=== PATIENT | male | born 1970 | race Caucasian/White ===

== ENCOUNTER 2016-07-03 17:06 | Inpatient (IN) | payer SELFPAY ==
--- NOTE | ~2016-07-03 | DS ---
Discharge Summary [facility] [address] [place]. [address] NAME: ADOLFO SHIPMAN : 72 STATUS : DIS IN PAT#: [id number] AGE: 46 ADM/REG DATE : 07/03/16 MR#: [id number] REPORT SERV DATE: 07/17/16 DICTATED BY: JESSICA WINCHESTER DATE: 07/16/16 REPORT STATUS : Draft TRANSCRIBED BY: ELIZABETH DATE: 07/16/16 Data Collection from hospitalization DISCHARGE DIAGNOSES: 1. Anterior ST-elevation myocardial infarction - acute. 2. Coronary artery disease, status post percutaneous transluminal coronary angioplasty/percutaneous coronary intervention/left anterior descending for in-stent restenosis. 3. Ischemic cardiomyopathy. 4. Ventricular fibrillation. 5. Hyperlipidemia. 6. Tobacco use. 7. History of previous myocardial infarction. CONSULTATIONS: None. PROCEDURES PERFORMED: Cardiac catheterization and percutaneous coronary intervention on 07/03/2016. DISCHARGE MEDICATIONS: Aspirin 81 mg daily, Lipitor 40 mg at bedtime, Coreg 25 mg twice a day, Prinivil 5 mg daily, Nitrostat 0.4 mg sublingually as needed, Aldactone 25 mg daily, Brilinta 90 mg twice a day, Coumadin 5 mg every evening, potassium 20 mEq if taking Lasix 20 mg for swelling and/or dyspnea. CONDITION AT DISCHARGE: Stable. DISPOSITION: The patient was discharged home on a low-sodium, low-cholesterol diet with activities as instructed. He will follow up with . He would have an INR level checked at the [facility] on 07/09/2016. HOSPITAL COURSE: This is a 46-year-old man who has coronary artery disease with previous inferior wall myocardial infarction in 2013. At that time, he was stented with a drug- eluting stent to the right coronary artery. Stage intervention during that hospitalization of the LAD was performed due to critical disease. The patient had not been followed up in Cardiology since 2013 after discharge. On the day of this admission, he developed an acute onset of chest discomfort while working in the yard. He reported an 11/10 intensity of chest pain. EMS was contacted. On arrival, electrocardiogram demonstrated marked ST- segment elevation in leads V2 through V5. Code STEMI protocol was activated. The patient was transferred emergently to [facility]. With direct admission, it was felt that he would need to undergo emergent cardiac catheterization. The patient developed ventricular fibrillation with defibrillation x2 with successful conversion to a sinus rhythm. He was admitted to the hospital at this time for further evaluation and treatment. 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 He tolerated this well, and there were no complications. The following day, he had no further chest pain. His lungs were clear. He was in a normal sinus rhythm. Echocardiogram was performed. On 07/05/2016, his nausea had decreased. He had some mild chest wall pain. He was in a sinus rhythm. His nausea and vomiting resolved. He has had a Discharge Summary [address] [address] NAME: ADOLFO SHIPMAN : 72 STATUS : DIS IN PAT#: [id number] AGE: 46 ADM/REG DATE : 07/03/16 MR#: [id number] REPORT SERV DATE: 07/17/16 DICTATED BY: JESSICA WINCHESTER DATE: 07/16/16 REPORT STATUS : Draft TRANSCRIBED BY: ELIZABETH DATE: 07/16/16 nose bleed which also resolved. He had an occasional cough. Coumadin had been started. Discharge planning was performed. He said he was feeling well. There was no hematoma or bruit at the cath site. On 07/07/2016, he had a Life Vest placed. He has no chest pain overnight. He had no edema. Additional congestive heart failure education was provided. Discharge instructions were given. Due to his improved and stable condition, he was discharged home with the above-stated instructions. Information collected by: Janell Groves I submit the above information as my discharge summary. TG/ELIZABETH Lennie Winchester M.D. / [id number] CC: Haile Brock MD
--- NOTE | ~2016-07-03 | HP ---
History And Physical [facility] [address] [place]. [address] NAME: ADOLFO SHIPMAN : 72 STATUS : ADM IN [facility]#: [id number] AGE: 46 ADM/REG DATE : 07/03/16 MR#: [id number] REPORT SERV DATE: 07/04/16 DICTATED BY: JESSICA WINCHESTER DATE: 07/03/16 REPORT STATUS : Draft TRANSCRIBED BY: MODJose Miguel DATE: 07/03/16 DATE OF ADMISSION: 07/03/2016 CHIEF COMPLAINT: Chest pain. HISTORY OF PRESENT ILLNESS: A 46-year-old male with known coronary artery disease with previous inferior wall myocardial infarction in 2013. At that time stented with a drug- eluting stent to the right coronary artery. Staged intervention during that hospitalization of the LAD due to critical disease. The patient has not been followed up in Cardiology since 2013 after discharge. Today, the patient developed an acute onset of chest discomfort while working in the yard. He reported "11/10" intensity chest pain. Emergency Medical Services were contacted. On arrival, electrocardiogram was performed, which demonstrated marked ST-segment elevation in leads V2 through V5. The code STEMI protocol was activated, and the patient was transferred emergently to [facility] in [place], [place] with direct admission to the cardiac catheterization laboratory. EN route, the patient developed ventricular fibrillation with defibrillation x2 with successful conversion to sinus rhythm. On arrival in the catheterization laboratory, the patient continued to complain of 10/10 intensity chest discomfort. He was markedly diaphoretic. He denies any recent chest pain before onset earlier today. PAST MEDICAL HISTORY: 1. Coronary artery disease with previous drug-eluting stents to the LAD and right coronary arteries in 2013. 2. Old inferior wall myocardial infarction in 2013. 3. Hyperlipidemia. 4. Tobacco abuse. SOCIAL HISTORY: Current smoker. Approximately one to two packs per day. A lifelong smoker. Denies illicit drug use. FAMILY HISTORY: Not obtainable. REVIEW OF SYSTEMS: Negative for all organ systems except per the history of present illness. ALLERGIES: NO KNOWN DRUG ALLERGIES. PHYSICAL EXAMINATION: VITALS: BP 138/72. PULSE 104 and regular. Respirations 20 and mildly labored. Saturating 100% on 2 L nasal cannula. Markedly diaphoretic. GENERAL: A middle-aged male in severe distress secondary to severe chest pain. HEENT: Normal. NECK: Supple, no JVD or bruit, normal carotid upstroke bilaterally, no thyromegaly. LUNGS: Clear to auscultation and percussion. No wheezes, rales or rhonchi. No use of accessory muscles. CARDIOLOGY: Regular rhythm, normal S1, S2, no thrill, no murmur, rubs or gallops, normal History And Physical [address] [address] NAME: ADOLFO SHIPMAN : 72 STATUS : ADM IN PAT#: [id number] AGE: 46 ADM/REG DATE : 07/03/16 MR#: [id number] REPORT SERV DATE: 07/04/16 DICTATED BY: JESSICA WINCHESTER DATE: 07/03/16 REPORT STATUS : Draft TRANSCRIBED BY: ELIZABETH DATE: 07/03/16 PMI. ABDOMEN: Bowel sounds positive, soft, nontender, and nondistended. No masses or aortic bruits. No hepatosplenomegaly or hepatojugular reflux. EXTREMITIES: No edema. Normal pulses. No clubbing or cyanosis. SKIN: Warm and dry, no significant rash. NEUROLOGIC: Alert and oriented x 3. Appropriate mood. IMAGING: EKG: Sinus rhythm with marked ST-segment elevation in leads V2 through V5. LABORATORIES: Not performed at the time of arrival in the catheterization laboratory. IMPRESSION: Acute anterior wall ST-segment elevation myocardial infarction. The patient received emergently cardiac catheterization laboratory for angiography and intervention as indicated. Emergent consent was assumed. In summary, the patient was found to have an occluded proximal LAD. He underwent balloon angioplasty with development of ventricular fibrillation for which he was defibrillated twice. Subsequent stenting of the proximal LAD lesion with a bare metal stent. Patent stent to mid LAD. Patent stent to mid RCA. Severe flow limiting disease in the proximal to midportion of the right coronary artery preceding the stent. Due to instability of the patient during catheterization, we did not proceed to intervention of the right coronary artery. Consider staged intervention at a later date. FERDINAND/ELIZABETH Lennie Winchester M.D. / [id number] CC: Haile Brock MD
[~2016-07-03 17:06] MED LIST: *DENIES; ASAB PO; COREG6 PO; NITROQUICK0.4 MG SL; PLAVIX PO; PRIN5 PO; WELLSR150 PO; ZOCOR40 PO
[2016-07-03 17:44] LABS: HEMOGLOBIN 15.1 g/dL (13.6-17.8); MEAN CORPUS HGB CONC 34.3 g/dL (32.0-36.0); MEAN CORPUSCULAR HEMOGLOB 30.8 pg (26.0-34.0); MEAN CORPUSCULAR VOLUME 89.6 fL (80-100); MEAN PLATELET VOLUME 10.8 fL (9.2-13.0); RBC DISTRIBUTION WIDTH 13.6 % (12.0-16.0); RED CELL COUNT 4.91 10/6/uL (4.7-6.1); WHITE BLOOD CELLS 17.8 10/3/uL (4.5-10.5)
[2016-07-03 17:45] LABS: MANUAL DIFF YES %; PLATELET COUNT 309 10/3/uL (150-400)
[2016-07-03 17:52] LABS: INTERNATIONAL NORMAL RATI 1.2 UNITS (-); PROTIME (NOT ORD) 14.6 SEC (12.0-14.5)
[2016-07-03 18:00] LABS: BUN (BLOOD UREA NITROGEN) 14 MG/DL (6-23); CHEST PAIN PROFILE TAT 0 Hrs 19 Mins; CHLORIDE, SERUM 111 MMOL/L (96-112); POTASSIUM, SERUM 2.8 MMOL/L (3.5-5.3); SODIUM, SERUM 143 MMOL/L (135-148); TROPONIN I 0.02 NG/ML (<0.05)
[2016-07-03 18:01] LABS: CALCIUM, SERUM 7.9 MG/DL (8.5-10.4); CO2 (CARBON DIOXIDE) 15 MMOL/L (24-34); CREATININE 1.32 MG/DL (0.70-1.30); GFR AFRICAN AMERICAN 75 ML/MIN (>=60); GFR NON AFRICAN AMERICAN 65 ML/MIN (>=60); GLUCOSE, SERUM 204 MG/DL (60-99)
[2016-07-03 18:04] LABS: BAND NEUTROPHILS 1 %; BASOPHILS 1 %; BASOPHILS ABSOLUTE (CALC) 0.18 10/3/uL (0.0-0.16); LYMPHOCYTES 32 %; MONOCYTES 2 %; MONOCYTES ABSOLUTE (CALC) 0.36 10/3/uL (0.21-1.20); NEUTROPHILS ABSOLUTE (CALC) 11.57 10/3/uL (2.02-8.40); PLATELET ESTIMATE ADQ (ADEQUATE); RBC MORPHOLOGY NORM (NORMAL); SEGMENTED NEUTROPHIL (0) 64 %; TOTAL NUCLEATED CELLS 100
[2016-07-03 22:01] LABS: HEMOGLOBIN 12.6 g/dL (13.6-17.8); MEAN CORPUS HGB CONC 33.6 g/dL (32.0-36.0); MEAN CORPUSCULAR HEMOGLOB 30.1 pg (26.0-34.0); MEAN CORPUSCULAR VOLUME 89.5 fL (80-100); MEAN PLATELET VOLUME 10.1 fL (9.2-13.0); PLATELET COUNT 251 10/3/uL (150-400); RBC DISTRIBUTION WIDTH 13.8 % (12.0-16.0); RED CELL COUNT 4.19 10/6/uL (4.7-6.1)
[2016-07-03 22:07] LABS: HEMATOCRIT 37.5 % (40.0-51.0); WHITE BLOOD CELLS 30.1 10/3/uL (4.5-10.5)
[2016-07-03 22:08] LABS: MANUAL DIFF YES %
[2016-07-03 22:20] LABS: BUN (BLOOD UREA NITROGEN) 11 MG/DL (6-23); CHLORIDE, SERUM 117 MMOL/L (96-112); CREATININE 1.12 MG/DL (0.70-1.30); GFR AFRICAN AMERICAN 91 ML/MIN (>=60); GFR NON AFRICAN AMERICAN 79 ML/MIN (>=60); PHOSPHORUS, SERUM 1.4 MG/DL (2.5-4.5); SODIUM, SERUM 146 MMOL/L (135-148)
[2016-07-03 22:22] LABS: CALCIUM, SERUM 6.4 MG/DL (8.5-10.4); CO2 (CARBON DIOXIDE) 21 MMOL/L (24-34); GLUCOSE, SERUM 149 MG/DL (60-99); POTASSIUM, SERUM 3.8 MMOL/L (3.5-5.3)
[2016-07-03 22:30] LABS: BAND NEUTROPHILS 1 %; MONOCYTES 2 %; PLATELET ESTIMATE ADQ (ADEQUATE); RBC MORPHOLOGY NORM (NORMAL); SEGMENTED NEUTROPHIL (0) 97 %; TOTAL NUCLEATED CELLS 100
[2016-07-04 04:28] LABS: HEMATOCRIT 47.9 % (40.0-51.0); HEMOGLOBIN 16.4 g/dL (13.6-17.8); MANUAL DIFF YES %; MEAN CORPUS HGB CONC 34.2 g/dL (32.0-36.0); MEAN CORPUSCULAR HEMOGLOB 30.5 pg (26.0-34.0); MEAN CORPUSCULAR VOLUME 89.2 fL (80-100); MEAN PLATELET VOLUME 10.7 fL (9.2-13.0); PLATELET COUNT 318 10/3/uL (150-400); RBC DISTRIBUTION WIDTH 13.7 % (12.0-16.0); RED CELL COUNT 5.37 10/6/uL (4.7-6.1); WHITE BLOOD CELLS 31.1 10/3/uL (4.5-10.5)
[2016-07-04 05:00] LABS: LYMPHOCYTES 5 %; LYMPHOCYTES ABSOLUTE (CALC) 1.56 10/3/uL (0.67-4.30); MONOCYTES 1 %; MONOCYTES ABSOLUTE (CALC) 0.31 10/3/uL (0.21-1.20); NEUTROPHILS ABSOLUTE (CALC) 29.23 10/3/uL (2.02-8.40); PLATELET ESTIMATE ADQ (ADEQUATE); SEGMENTED NEUTROPHIL (0) 94 %; TOTAL NUCLEATED CELLS 100
[2016-07-04 05:05] LABS: BUN (BLOOD UREA NITROGEN) 13 MG/DL (6-23); CHLORIDE, SERUM 108 MMOL/L (96-112); CK-MB 256.6 NG/ML; CO2 (CARBON DIOXIDE) 20 MMOL/L (24-34); CPK 1982 U/L (0-200); CREATININE 1.16 MG/DL (0.70-1.30); GFR AFRICAN AMERICAN 88 ML/MIN (>=60); GFR NON AFRICAN AMERICAN 76 ML/MIN (>=60); GLUCOSE, SERUM 163 MG/DL (60-99); HDL CHOLESTEROL 44 MG/DL (> 39)
[2016-07-04 05:15] LABS: CALCIUM, SERUM 8.6 MG/DL (8.5-10.4); CHOL/HDL RATIO(NOT ORDER) 5.5 (0-5); CHOLESTEROL 240 MG/DL (< 200); CKMB INDEX (NOT ORD) 12.9; LDL CHOLESTEROL 164 MG/DL (< 130); NON-HDL CHOLESTEROL 196 MG/DL (< 160); POTASSIUM, SERUM 4.9 MMOL/L (3.5-5.3); SODIUM, SERUM 139 MMOL/L (135-148); TRIGLYCERIDE 163 MG/DL (< 150)
[2016-07-04 12:57] LABS: CK-MB 213.8 NG/ML; CKMB INDEX (NOT ORD) 9.9
[2016-07-04] MEDS ORDERED: *UNABLE3 (13:10)
[2016-07-04 14:01] LABS: HEMATOCRIT 44.2 % (40.0-51.0); HEMOGLOBIN 15.3 g/dL (13.6-17.8); MANUAL DIFF YES %; MEAN CORPUS HGB CONC 34.6 g/dL (32.0-36.0); MEAN CORPUSCULAR HEMOGLOB 30.8 pg (26.0-34.0); MEAN CORPUSCULAR VOLUME 88.9 fL (80-100); MEAN PLATELET VOLUME 10.9 fL (9.2-13.0); PLATELET COUNT 276 10/3/uL (150-400); RBC DISTRIBUTION WIDTH 14.2 % (12.0-16.0); RED CELL COUNT 4.97 10/6/uL (4.7-6.1); WHITE BLOOD CELLS 30.1 10/3/uL (4.5-10.5)
[2016-07-04 14:17] LABS: BASOPHILS 1 %; LYMPHOCYTES 9 %; LYMPHOCYTES ABSOLUTE (CALC) 2.71 10/3/uL (0.67-4.30); MONOCYTES 6 %; MONOCYTES ABSOLUTE (CALC) 1.81 10/3/uL (0.21-1.20); NEUTROPHILS ABSOLUTE (CALC) 25.28 10/3/uL (2.02-8.40); PLATELET ESTIMATE ADQ (ADEQUATE); RBC MORPHOLOGY NORM (NORMAL); SEGMENTED NEUTROPHIL (0) 84 %; TOTAL NUCLEATED CELLS 100
[2016-07-04 22:15] LABS: CK-MB 117.3 NG/ML
[2016-07-04 22:16] LABS: CKMB INDEX (NOT ORD) 6.2
[2016-07-05 06:10] LABS: BASOPHILS 0 %; BASOPHILS ABSOLUTE 0.01 10/3/uL (0.0-0.16); EOSINOPHILS 0.2 %; EOSINOPHILS ABSOLUTE 0.06 10/3/uL (0.0-0.53); HEMATOCRIT 43.3 % (40.0-51.0); HEMOGLOBIN 14.7 g/dL (13.6-17.8); IMMATURE GRANULOCYTES 0.4 %; LYMPHOCYTES 12.7 %; LYMPHOCYTES ABSOLUTE 3.15 10/3/uL (0.67-4.30); MANUAL DIFF NO %; MEAN CORPUS HGB CONC 33.9 g/dL (32.0-36.0); MEAN CORPUSCULAR HEMOGLOB 30.5 pg (26.0-34.0); MEAN CORPUSCULAR VOLUME 89.8 fL (80-100); MONOCYTES ABSOLUTE 1.74 10/3/uL (0.21-1.20); NEUTROPHILS 79.7 %; NEUTROPHILS ABSOLUTE 19.72 10/3/uL (2.02-8.40); PLATELET COUNT 235 10/3/uL (150-400); RBC DISTRIBUTION WIDTH 13.8 % (12.0-16.0); RED CELL COUNT 4.82 10/6/uL (4.7-6.1); WHITE BLOOD CELLS 24.8 10/3/uL (4.5-10.5)
[2016-07-05 06:13] LABS: BUN (BLOOD UREA NITROGEN) 13 MG/DL (6-23); CHLORIDE, SERUM 101 MMOL/L (96-112); CO2 (CARBON DIOXIDE) 24 MMOL/L (24-34); CREATININE 0.95 MG/DL (0.70-1.30); GFR AFRICAN AMERICAN 112 ML/MIN (>=60); GFR NON AFRICAN AMERICAN 96 ML/MIN (>=60); SODIUM, SERUM 137 MMOL/L (135-148)
[2016-07-05 06:17] LABS: GLUCOSE, SERUM 115 MG/DL (60-99); POTASSIUM, SERUM 3.5 MMOL/L (3.5-5.3)
[2016-07-05] MEDS ORDERED: HALF81 PO (10:17)
[2016-07-05 13:24] LABS: BUN (BLOOD UREA NITROGEN) 15 MG/DL (6-23); CALCIUM, SERUM 8.9 MG/DL (8.5-10.4); CHLORIDE, SERUM 100 MMOL/L (96-112); CO2 (CARBON DIOXIDE) 27 MMOL/L (24-34); CREATININE 1.04 MG/DL (0.70-1.30); GFR AFRICAN AMERICAN 100 ML/MIN (>=60); GFR NON AFRICAN AMERICAN 86 ML/MIN (>=60); GLUCOSE, SERUM 113 MG/DL (60-99); POTASSIUM, SERUM 4.3 MMOL/L (3.5-5.3); SODIUM, SERUM 133 MMOL/L (135-148)
[2016-07-06 04:35] LABS: BASOPHILS 0.2 %; BASOPHILS ABSOLUTE 0.03 10/3/uL (0.0-0.16); EOSINOPHILS 0.9 %; EOSINOPHILS ABSOLUTE 0.16 10/3/uL (0.0-0.53); HEMATOCRIT 42.8 % (40.0-51.0); HEMOGLOBIN 14.4 g/dL (13.6-17.8); IMMATURE GRANULOCYTES 0.4 %; IMMATURE GRANULOCYTES ABSOLUTE 0.06 10/3/uL (0.0-0.11); LYMPHOCYTES ABSOLUTE 3.56 10/3/uL (0.67-4.30); MEAN CORPUS HGB CONC 33.6 g/dL (32.0-36.0); MEAN CORPUSCULAR HEMOGLOB 30.4 pg (26.0-34.0); MEAN CORPUSCULAR VOLUME 90.3 fL (80-100); MEAN PLATELET VOLUME 10.6 fL (9.2-13.0); MONOCYTES 8.6 %; MONOCYTES ABSOLUTE 1.46 10/3/uL (0.21-1.20); NEUTROPHILS 68.9 %; NEUTROPHILS ABSOLUTE 11.65 10/3/uL (2.02-8.40); PLATELET COUNT 236 10/3/uL (150-400); RBC DISTRIBUTION WIDTH 13.6 % (12.0-16.0); RED CELL COUNT 4.74 10/6/uL (4.7-6.1); WHITE BLOOD CELLS 16.9 10/3/uL (4.5-10.5)
[2016-07-06 04:36] LABS: MANUAL DIFF NO %
[2016-07-06 04:37] LABS: INTERNATIONAL NORMAL RATI 1.2 UNITS (-); PROTIME (NOT ORD) 15.1 SEC (12.0-14.5)
[2016-07-06 04:45] LABS: BUN (BLOOD UREA NITROGEN) 16 MG/DL (6-23); CHLORIDE, SERUM 100 MMOL/L (96-112); CO2 (CARBON DIOXIDE) 28 MMOL/L (24-34); CREATININE 1.07 MG/DL (0.70-1.30); GFR AFRICAN AMERICAN 97 ML/MIN (>=60); GFR NON AFRICAN AMERICAN 83 ML/MIN (>=60); GLUCOSE, SERUM 96 MG/DL (60-99); POTASSIUM, SERUM 4.4 MMOL/L (3.5-5.3); SODIUM, SERUM 136 MMOL/L (135-148)
[2016-07-07 04:33] LABS: INTERNATIONAL NORMAL RATI 1.6 UNITS (-); PROTIME (NOT ORD) 19.2 SEC (12.0-14.5)
[2016-07-07] MEDS ORDERED: C5 PO (07:39)
[2016-07-07] MEDS ORDERED: BRILINTA90 MG PO (07:39)
[2016-07-07] MEDS ORDERED: COREG25 PO (07:40)
[2016-07-07] MEDS ORDERED: NITROSTAT0.4 MG SL (07:40)
[2016-07-07] MEDS ORDERED: LIPITOR40 PO (07:40)
[2016-07-07] MEDS ORDERED: PRIN5 PO (07:41)
[2016-07-07] MEDS ORDERED: SPIRO25 PO (07:41)
[2016-07-07] MEDS ORDERED: KDUR20 PO (08:41)
[2016-07-07] MEDS ORDERED: L20 PO (08:41)
== END 2016-07-07 09:48 | disposition home or self-care (01) | DRG 246 ==
LOC: SSU2 17:06 → CCU 18:14 → 5NO 07-05 11:40
PROVIDERS: Internal Medicine Cardiovascular Disease
DX: I21.09 ST elevation (STEMI) myocardial infarction involving other coronary artery of anterior wall (principal); I49.01 Ventricular fibrillation; E78.5 Hyperlipidemia, unspecified; I25.10 Atherosclerotic heart disease of native coronary artery without angina pectoris; F17.210 Nicotine dependence, cigarettes, uncomplicated; I25.2 Old myocardial infarction; I25.5 Ischemic cardiomyopathy
CPT/HCPCS: 71010; 71020; 80048; 80061; 82550; 82553; 83735; 84100; 84132; 84295; 84484; 85025; 85610; 85730; 87641; 92941; 92973; 92978; 93005; 93454; 93458; 99152; 99153; A9270-GY; C1725; C1753; C1757; C1760; C1769; C1874; C1887; C1894; C8929; C9606; J0282; J0583; J1327; J2250; J2405; J2550; J3010; Q9957; Q9967